=== PATIENT | female | born 1985 | race Caucasian/White ===

== ENCOUNTER 2024-08-24 16:57 | Emergency (ER) | payer MEDICAID, OTHER ==
[~2024-08-24] VITALS: Ht 170.2 cm; Wt 80.0 kg
[2024-08-24 17:05] VITALS: BP 138/79; PULSE 100; RESP 16; TEMP 98; O2SAT 100
== END 2024-08-24 21:58 | disposition left against medical advice (07) ==
LOC: ER 16:57
DX: F10.129 Alcohol abuse with intoxication, unspecified (principal); E11.9 Type 2 diabetes mellitus without complications; Z53.21 Procedure and treatment not carried out due to patient leaving prior to being seen by health care provider; Y90.9 Presence of alcohol in blood, level not specified